=== PATIENT | female | born 1995 | race Caucasian/White ===

== ENCOUNTER 2017-10-15 21:50 | Emergency (ER) | payer OTHER ==
[2017-10-15 22:00] VITALS: BP 110/64; PULSE 82; TEMP 98.4; BMI 23.4
[2017-10-15] MEDS ORDERED: ONDANSETRON *ODT* 4 MG TABLET SL ONE (22:09)
--- NOTE | 2017-10-15 22:40 | PDOC ---
History of Present Illness - General Chief Complaint: Nausea/Vomiting Stated Complaint: VOMITING Time Seen by Provider: 10/15/17 21:57 History Source: Patient Exam Limitations: No Limitations - History of Present Illness Initial Comments: 10/15/17 22:36 This is a 21-year-old female comes in complaining of intermittent vomiting and diarrhea times approximately one week. Patient traveled to [facility] and post returning patient has had 2-3 episodes of vomiting and diarrhea on a daily basis since returned. Patient said vomitus and diarrhea is non-bloody. Patient denies any pain associated with her symptoms. Patient denies any fevers or chills. Patient denies any dizziness, lightheadedness weakness or feeling like she's been a pass out. Patient is otherwise healthy and takes no other medications. PAST MEDICAL HISTORY: no significant history PAST SURGICAL HISTORY: no significant history FAMILY HISTORY: no pertinant history SOCIAL HISTORY: Pt lives with family and is employed. MEDICATIONS: reviewed ALLERGIES: As per nursing notes Review of Systems General: No fevers or chills, no weakness, no weight loss HEENT: No change in vision. No sore throat,. No ear pain CardioVascular: No chest pain or shortness of breath Respiratory:No cough, or wheezing. Gastrointestinal: no nausea, vomitting, diarrhea or constipation, No rectal bleeding Genitourinary: No dysuria, hematuria, or frequency Musculoskeletal: No joint or muscle pain or swelling Neurologic: No headache, vertigo, dizziness or loss of consciousness Psychiatric: nor depression Skin: No rashes or easy bruising Endocrine: no increased thirst or abnormal weight change Allergic: no skin or latex allergy All other systems reviewed and normal Exam: General: Well-nourished well-developed individual, no acute distress HEENT: Throat: Normal, tonsils normal, no erythema or exudate mucous membranes are moist and patient appears well-hydrated Neck: Supple, no meningeal signs, no lymphadenopathy Eyes::Pupils equal reactive and round, extraocular motion intact Chest: Nontender to palpation Cardiac: S1-S2 normal, regular rate and rhythm, no murmurs rubs or gallops Respiratory: Lungs clear to auscultation bilateral Abdomen: Soft, nondistended, normal bowel sounds, nontender to palpation diffusely Extremities: Warm, dry, no cyanosis, clubbing, or edema Skin: No rashes Neuro: Alert and oriented x3, CN II - XII intact, nonfocal exam with normal strength, normal sensation, normal reflexes, normal gait, Psych: Normal mood and affect Assessment and plan: This is a 21-year-old female who complains needing of vomiting and diarrhea intermittently times approximately one week. On my exam patient appears well-hydrated she is not tachycardic and her blood pressure is normal. Patient drinking liquids in the emergency room without any further vomiting. Patient was reassured that this most likely is viral will run its course and if she is not improved in another couple a day she should follow-up with her primary care doctor. Patient was given Zofran here in the emergency room and a prescription for Zofran was sent to her pharmacy. Past History - Past Medical History Allergies/Adverse Reactions: Allergies Allergy/AdvReac Type Severity Reaction Status Date / Time No Known Allergies Allergy Verified 10/15/17 21:52 Home Medications: Ambulatory Orders Ondansetron [Zofran *Odt*] 8 mg SL TID #15 od.tablet 10/15/17 COPD: No Other medical history: DENIES - Suicide/Smoking/Psychosocial Hx Smoking History: Never smoked Have you smoked in the past 12 months: No Information on smoking cessation initiated: No Hx Alcohol Use: No Drug/Substance Use Hx: No Substance Use Type: None *Physical Exam - Vital Signs Last Vital Signs Temp Pulse Resp BP Pulse Ox 98.4 F 82 16 110/64 100 10/15/17 21:57 10/15/17 21:57 10/15/17 21:57 10/15/17 21:57 10/15/17 21:57 ED Treatment Course - Medications Given in the ED: ED Medications Discontinued Medications Generic Name Dose Route Start Last Admin Trade Name Kari PRN Reason Stop Dose Admin Ondansetron HCl 4 mg 10/15/17 22:09 10/15/17 22:12 Zofran Odt - SL 10/15/17 22:10 4 mg ONCE ONE Administration *DC/Admit/Observation/Transfer Diagnosis at time of Disposition: Nausea vomiting and diarrhea - Discharge Dispostion Disposition: HOME Condition at time of disposition: Stable Admit: No - Referrals - Patient Instructions Printed Discharge Instructions: DI for Vomiting -- Adult Additional Instructions: For the nausea take Zofran 1 tablet as often as every 8 hours T to solve underneath your tongue. Clear liquids only for the next 6 hours.. After that if you have had no further vomiting you may have bananas, rice, applesauce, or toast. If no further vomiting for another 8 hours you may have regular food. If you vomit again then nothing to eat or drink for 2 hours. then start back with the clear liquids. Return to the emergency department immediately with ANY new, persistent or worsening symptoms. You MUST call and follow up with your doctor tomorrow if not better. Please make sure your doctor reviews the results of your emergency evaluation. If you continue to have nausea vomiting diarrhea is important that you follow- up with your primary care doctor in 1-2 days. Return to the emergency department immediately with ANY new, persistent or worsening symptoms. Continue any medications as previously prescribed by your physician. . Please make sure your doctor reviews the results of your emergency evaluation. Thank you for coming to the Emergency Department today for your care. It was a pleasure to see you today. Please note that your evaluation is INCOMPLETE until you follow-up with your doctor. - Post Discharge Activity
== END 2017-10-15 22:44 | disposition home or self-care (01) ==
LOC: FER 21:50
DX: R11.2 Nausea with vomiting, unspecified (principal); R19.7 Diarrhea, unspecified
CPT/HCPCS: 99281-25

== ENCOUNTER 2018-04-16 05:25 | Emergency (ER) | payer OTHER ==
[2018-04-16 05:38] VITALS: BP 118/75; PULSE 83; TEMP 98.1; BMI 23.4
--- NOTE | 2018-04-16 06:16 | PDOC ---
History of Present Illness - General Chief Complaint: Laceration Stated Complaint: LEFT THUMB CUT Time Seen by Provider: 04/16/18 05:59 History Source: Patient Exam Limitations: No Limitations - History of Present Illness Initial Comments: 04/16/18 06:13 Anitra is a 22 year old female with no pmhx c/o laceration to the left thumb since [employer]. Patient states was cutting onion when cut with a sharp knife. Tetanus is UTD PMD: Dr. Valladares PMHX: neg PSOCHX: neg etoh, drug, cig ALL: NKDA GENERAL/CONSTITUTIONAL: [No fever or chills. No weakness. No weight change.] HEAD, EYES, EARS, NOSE AND THROAT: [No change in vision. No ear pain or discharge. No sore throat.] RESPIRATORY: [No cough, wheezing, or hemoptysis.] GASTROINTESTINAL: [No nausea, vomiting, diarrhea or constipation. No rectal bleeding.] MUSCULOSKELETAL: [No joint or muscle swelling or pain. No neck or back pain.] SKIN AND BREASTS: [No rash or easy bruising.] NEUROLOGIC: [No headache, vertigo, loss of consciousness, or loss of sensation.] PSYCHIATRIC: [No depression or anxiety.] HEMATOLOGIC/LYMPHATIC: [No anemia, easy bleeding, or history of blood clots.] ALLERGIC/IMMUNOLOGIC: [No hives or skin allergy. No latex allergy.] GENERAL: [The patient is awake, alert, and fully oriented, in mild distress.] HEAD: [Normal with no signs of trauma.] EYES: [Pupils equal, round and reactive to light, extraocular movements intact, sclera anicteric, conjunctiva clear.] ENT: [Ears normal, nares patent, oropharynx clear without exudates. Moist mucous membranes.] LUNGS: [Breath sounds equal, clear to auscultation bilaterally. No wheezes, and no crackles.] HEART: [Regular rate and rhythm, normal S1 and S2 without murmur, rub.] EXTREMITIES: [Normal range of motion, no edema. No clubbing or cyanosis. No cords, erythema, or tenderness.] NEUROLOGICAL: [Cranial nerves II through XII grossly intact. Normal speech, normal gait, 5/5 strength] PSYCH: [Normal mood, normal affect.] SKIN: [Warm, Dry, normal turgor, 2cm laceration flap to the planter aspect thumb ] Past History - Past Medical History Allergies/Adverse Reactions: Allergies Allergy/AdvReac Type Severity Reaction Status Date / Time No Known Allergies Allergy Verified 04/16/18 05:38 Home Medications: Ambulatory Orders Ondansetron [Zofran *Odt*] 8 mg SL TID #15 od.tablet 10/15/17 COPD: No - Suicide/Smoking/Psychosocial Hx Smoking History: Never smoked Have you smoked in the past 12 months: No Information on smoking cessation initiated: No Hx Alcohol Use: No Drug/Substance Use Hx: No Substance Use Type: None *Physical Exam - Vital Signs Last Vital Signs Temp Pulse Resp BP Pulse Ox 98.1 F 83 18 118/75 98 04/16/18 05:30 04/16/18 05:30 04/16/18 05:30 04/16/18 05:30 04/16/18 05:30 Procedures - Laceration/Wound Repair Left Lateral Finger 1st digit Wound Length: to 2.5 cm Wound Explored: clean Wound's Depth, Shape: superficial, flap Irrigated w/ Saline: Yes Betadine Prep: Yes Anesthesia: 1% Lidocaine Suture Size/Type: 5:0 Number of Sutures: 5 Medical Decision Making - Medical Decision Making 04/16/18 06:17 I discussed the physical exam findings, ancillary test results and final diagnoses with the patient. I answered all of the patient's questions. The patient was satisfied with the care received and felt comfortable with the discharge plan and treatment plan. The Patient agrees to follow up with the primary care physician within 24-72 hours. *DC/Admit/Observation/Transfer Diagnosis at time of Disposition: Laceration - Discharge Dispostion Disposition: HOME Condition at time of disposition: Stable - Referrals - Patient Instructions Printed Discharge Instructions: DI for Laceration Repair Additional Instructions: Your Discharge Instructions: You must call primary care physician within 24 hours to arrange follow-up. Return to the Emergency Department with any new, persistent or worsening symptoms, for fever, chills, SOB, dizziness or any other concerning changes that may occur. follow-up with your PMD in 2 days for a wound check and 7-10 days for suture removal. If the wound is hot, with the a discharge, streaking, increased pain, return to the emergency room immediately. - Post Discharge Activity Forms/Work/School Notes: Back to School
== END 2018-04-16 06:39 | disposition home or self-care (01) ==
LOC: JER 05:25
PROC: 0HQGXZZ Repair Left Hand Skin, External Approach (ICD-10-PCS; principal; 2018-04-16)
DX: S61.012A Laceration without foreign body of left thumb without damage to nail, initial encounter (principal); W26.0XXA Contact with knife, initial encounter; Y93.G1 Activity, food preparation and clean up; Y92.030 Kitchen in apartment as the place of occurrence of the external cause; Y99.8 Other external cause status
CPT/HCPCS: 12001; 99281-25

== ENCOUNTER 2018-10-23 16:49 | Emergency (ER) | payer OTHER ==
[2018-10-23 17:10] VITALS: BP 118/74; PULSE 93; TEMP 98; BMI 23.4
--- NOTE | 2018-10-23 17:10 | PDOC ---
Rapid Medical Evaluation Time Seen by Provider: 10/23/18 17:07 Medical Evaluation: Allergies Allergy/AdvReac Type Severity Reaction Status Date / Time No Known Allergies Allergy Verified 04/26/18 16:29 10/23/18 17:07 I have performed a brief in-person evaluation of this patient. The patient presents with a chief complaint of: 1 day of diffuse abdominal pain , nausea, vomiting, diarrhea, no known sick contacts. Denies cold symptoms Pertinent physical exam findings: Afebrile, looks in mild discomfort for pain. I have ordered the following: UCG The patient will proceed to the ED for further evaluation. Discharge Disposition - Diagnosis Nausea vomiting and diarrhea - Referrals - Patient Instructions - Post Discharge Activity
[2018-10-23] MEDS ORDERED: ONDANSETRON 4 MG/2 ML VIAL IVPUSH ONE (17:32)
[2018-10-23] MEDS ORDERED: SODIUM CHLORIDE 1,000 ML IV STA (17:32)
--- NOTE | 2018-10-23 17:32 | PDOC ---
History of Present Illness - General Chief Complaint: Nausea/Vomiting Stated Complaint: VOMITING Time Seen by Provider: 10/23/18 17:07 History Source: Patient - History of Present Illness Timing/Duration: reports: constant Abdominal Pain Onset Location: reports: epigastric Past History - Past Medical History Allergies/Adverse Reactions: Allergies Allergy/AdvReac Type Severity Reaction Status Date / Time No Known Allergies Allergy Verified 04/26/18 16:29 Home Medications: Ambulatory Orders NK [No Known Home Medication] 04/26/18 COPD: No - Immunization History Immunization Up to Date: No - Suicide/Smoking/Psychosocial Hx Smoking History: Never smoked Have you smoked in the past 12 months: No Information on smoking cessation initiated: No Hx Alcohol Use: No Drug/Substance Use Hx: No Substance Use Type: None Review of Systems - Review of Systems Constitutional: Yes: Weakness. No: Chills, Fever ABD/GI: Yes: Diarrhea, Nausea, Vomiting, Abdominal cramping : No: Dysuria *Physical Exam - Vital Signs Last Vital Signs Temp Pulse Resp BP Pulse Ox 98.0 F 93 H 17 118/74 98 10/23/18 17:08 10/23/18 17:08 10/23/18 17:08 10/23/18 17:08 10/23/18 17:08 - Physical Exam Comments: 10/23/18 18:00 Pt actively vomiting in ED General Appearance: Yes: Appropriately Dressed, Moderate Distress HEENT: positive: Normal Voice Neck: positive: Supple Respiratory/Chest: negative: Respiratory Distress Gastrointestinal/Abdominal: positive: Normal Bowel Sounds, Tender (to epigastrium, NT to RUQ ot over mcburneys), Soft. negative: Distended, Guarding Integumentary: positive: Dry, Warm Neurologic: positive: Fully Oriented, Alert, Normal Mood/Affect Moderate Sedation - Procedure Monitoring Vital Signs: Procedure Monitoring Vital Signs Temperature 98.0 F 10/23/18 17:08 Pulse Rate 93 H 10/23/18 17:08 Respiratory Rate 17 10/23/18 17:08 Blood Pressure 118/74 10/23/18 17:08 O2 Sat by Pulse Oximetry (%) 98 10/23/18 17:08 ED Treatment Course - LABORATORY CBC & Chemistry Diagram: 10/23/18 17:40 10/23/18 17:40 Medical Decision Making - Medical Decision Making 10/23/18 17:31 22 yo F, s/p liposuction remotely, here w/ intractable n/v w/ NB, watery diarrhea and epigastric pain since this am. No body aches, f/c. Denies sick contacts, recent travel or unusual food See exam Possibly viral gastroenteritis vs gastritis, unlikely appy as NT over mcburneys , unlikely SBO as having BM and passing flatus Aravind uncomfortable but stable w/ ttp to epigastrium -IVF -zofran -labs including drug screen given strong marijuana odor on pt and boyfriend -reassess 10/23/18 19:08 Pt signed out to JACINTO Thomas pending labs/reassessment *DC/Admit/Observation/Transfer Diagnosis at time of Disposition: Nausea vomiting and diarrhea - Referrals - Patient Instructions - Post Discharge Activity
[2018-10-23] MEDS ORDERED: ONDANSETRON 4 MG/2 ML VIAL ONE (17:54)
[2018-10-23] MEDS ORDERED: ACETAMINOPHEN 1000 MG/100 ML VIAL (NON FORMULARY) IVPB ONE (17:57)
[2018-10-23] MEDS ORDERED: ACETAMINOPHEN INJECTION 100 ML IVPB ONE (17:58)
[2018-10-23 18:09] LABS: BASO % 0.4 % (0-2.0); EOS % 0.3 % (0-4.5); HEMATOCRIT 38.3 % (32.4-45.2); HEMOGLOBIN 13.1 GM/dL (10.7-15.3); LYMPH % 17.8 % (8-40); MCHC 34.3 g/dl (32.0-36.0); MEAN CELL VOLUME 90.3 fl (80-96); MEAN PLT VOLUME 8.8 fl (7.5-11.1); MONO % 3.8 % (3.8-10.2); NEUT % 77.7 % (42.8-82.8); PLATELET COUNT 261 K/MM3 (134-434); RBC 4.24 M/mm3 (3.60-5.2); RDW 13.9 % (11.6-15.6); WHITE BLOOD COUNT 7.2 K/mm3 (4.0-10.0)
[2018-10-23 18:30] LABS: ALBUMIN 4.5 g/dl (3.4-5.0); ALK PHOS 69 U/L (45-117); ANION GAP 8 MMOL/L (8-16); BILIRUBIN,TOTAL 0.6 mg/dL (0.2-1); BLOOD UREA NITROGEN 14 mg/dL (7-18); CALCIUM 9.3 mg/dL (8.5-10.1); CHLORIDE 110 mmol/L (98-107); CO2 27 mmol/L (21-32); CREATININE 0.6 mg/dL (0.55-1.3); GLUCOSE,RANDOM 98 mg/dL (74-106); LIPASE 88 U/L (73-393); POTASSIUM 4.2 mmol/L (3.5-5.1); SGOT/AST 26 U/L (15-37); SGPT/ALT 38 U/L (13-61); SODIUM 145 mmol/L (136-145); TOT PROT 7.8 g/dl (6.4-8.2)
[2018-10-23 18:56] LABS: URINE APPEARANCE CLEAR; URINE BILIRUBIN NEGATIVE (<2.0 mg/dL); URINE COLOR LTYELLOW; URINE GLUCOSE (UA) NEGATIVE (NEGATIVE); URINE KETONE NEGATIVE (NEGATIVE); URINE LEUK ESTERASE NEGATIVE (NEGATIVE); URINE NITRITE NEGATIVE (NEGATIVE); URINE PROTEIN NEGATIVE (NEGATIVE); URINE UROBILINOGEN NEGATIVE mg/dL (0.2-1.0)
--- NOTE | 2018-10-23 19:46 | PDOC ---
*Physical Exam - Vital Signs Last Vital Signs Temp Pulse Resp BP Pulse Ox 98.0 F 93 H 17 118/74 98 10/23/18 17:08 10/23/18 17:08 10/23/18 17:08 10/23/18 17:08 10/23/18 17:08 - Physical Exam General Appearance: Yes: Appropriately Dressed ED Treatment Course - LABORATORY CBC & Chemistry Diagram: 10/23/18 17:40 10/23/18 17:40 - ADDITIONAL ORDERS Additional order review: Laboratory Results 10/23/18 10/23/18 10/23/18 18:43 17:40 17:32 Sodium 145 Potassium 4.2 Chloride 110 H Carbon Dioxide 27 Anion Gap 8 BUN 14 Creatinine 0.6 Creat Clearance w eGFR > 60 Random Glucose 98 Calcium 9.3 Total Bilirubin 0.6 AST 26 ALT 38 Alkaline Phosphatase 69 Total Protein 7.8 Albumin 4.5 Lipase 88 Serum , Qual Negative Urine Color Ltyellow Urine Appearance Clear Urine pH 9.0 H Ur Specific [place] 1.024 Urine Protein Negative Urine Glucose (UA) Negative Urine Ketones Negative Urine Blood Negative Urine Nitrite Negative Urine Bilirubin Negative Urine Urobilinogen Negative Ur Leukocyte Esterase Negative 10/23/18 17:40 RBC 4.24 MCV 90.3 MCHC 34.3 RDW 13.9 MPV 8.8 Neutrophils % 77.7 Lymphocytes % 17.8 Monocytes % 3.8 Eosinophils % 0.3 Basophils % 0.4 - Medications Given in the ED: ED Medications Discontinued Medications Generic Name Dose Route Start Last Admin Trade Name Kari PRN Reason Stop Dose Admin Acetaminophen 1,000 mg 10/23/18 17:57 10/23/18 18:02 Ofirmev Injection - IVPB 10/23/18 17:58 1,000 mg ONCE ONE Administration Sodium Chloride 1,000 mls @ 1,000 mls/hr 10/23/18 17:32 10/23/18 18:02 Normal Saline - IV 10/23/18 18:31 1,000 mls/hr ASDIR STA Administration Ondansetron HCl 4 mg 10/23/18 17:32 10/23/18 18:02 Zofran Injection IVPUSH 10/23/18 17:33 4 mg ONCE ONE Administration Medical Decision Making - Medical Decision Making U tox positive for opiates and THC. 10/23/18 20:20 currently PO challenging 10/23/18 21:31 patient has tolerated by mouth water in the ED. Will give some Maalox and Zantac. as some epigastric discomfort patient is well appearing. Will DC to continue by mouth hydration at home 10/23/18 21:53 patient now feels better will d/c home *DC/Admit/Observation/Transfer Diagnosis at time of Disposition: Nausea vomiting and diarrhea - Discharge Dispostion Disposition: HOME - Prescriptions Prescriptions: Ondansetron [Ondansetron Odt] 4 mg PO TID PRN #10 tab.rapdis PRN Reason: Nausea And/Or Vomiting Ranitidine [Zantac -] 150 mg PO BID #30 tablet - Referrals - Patient Instructions Printed Discharge Instructions: DI for Vomiting -- Adult Additional Instructions: Drink plenty of fluids. Drink Gatorade tolerated. Follow-up with your doctor as soon as possible. Start a Brat (bananas, rice, apples, toast) diet - Post Discharge Activity Forms/Work/School Notes: Back to School
[2018-10-23 19:54] LABS: COCAINE, UR NEGATIVE ng/ml (CUTOFF=300); METHADONE, UR NEGATIVE ng/ml (CUTOFF=300); PHENCYCLIDINE,URINE NEGATIVE ng/ml (CUTOFF=25); URINE AMPHETAMINES NEGATIVE ng/ml (CUTOFF=500); URINE BARBITURATES NEGATIVE ng/ml (CUTOFF=200); URINE BENZODIAZEPINES NEGATIVE ng/ml (CUTOFF=200)
[2018-10-23 20:01] LABS: OPIATES, URI POSITIVE ng/ml (CUTOFF=300)
[2018-10-23] MEDS ORDERED: FAMOTIDINE 20 MG/50 ML IVPB 20 MG/50 ML MG IVPB ONE (20:20)
[2018-10-23] MEDS ORDERED: RANITIDINE HCL 150 MG TABLET (FP) PO ONE (21:27)
[2018-10-23] MEDS ORDERED: RANITIDINE HCL 150 MG TABLET (FP) ONE (21:30)
[2018-10-23] MEDS ORDERED: MAG HYDROX/AL HYDROX/SIMETH 30 ML UNIT-DOSE CUP ONE (21:30)
== END 2018-10-23 22:19 | disposition home or self-care (01) ==
LOC: JER 16:49
PROC: 3E033GC Introduction of Other Therapeutic Substance into Peripheral Vein, Percutaneous Approach (ICD-10-PCS; principal; 2018-10-23)
PROC: 3E033NZ Introduction of Analgesics, Hypnotics, Sedatives into Peripheral Vein, Percutaneous Approach (ICD-10-PCS; 2018-10-23)
DX: R11.2 Nausea with vomiting, unspecified (principal); R19.7 Diarrhea, unspecified
CPT/HCPCS: 36415; 80053; 80307; 81003; 83690; 84703; 85025; 87804; 96374; 96375; 99282-25; J0131; J7030

== ENCOUNTER 2023-10-04 23:13 | Emergency (ER) | payer OTHER ==
[2023-10-04 23:29] VITALS: BP 118/82; PULSE 98; RESP 20; TEMP 98.2; BMI 25.4
[2023-10-04 23:58] LABS: HCG,QUALITATIVE URINE Negative
[2023-10-05 00:13] LABS: EPI CELLS >36 /uL (0-25.1); HYALINE CASTS 4 /uL (0-3.1); PH,URINE 5.5 (5.0-8.0); URINE APPEARANCE CLEAR; URINE BACTERIA 759 /uL (0-1359); URINE BILIRUBIN NEGATIVE (NEGATIVE); URINE COLOR YELLOW; URINE GLUCOSE (UA) NEGATIVE (NEGATIVE); URINE KETONE 1+ (NEGATIVE); URINE LEUK ESTERASE TRACE (NEGATIVE); URINE NITRITE NEGATIVE (NEGATIVE); URINE PROTEIN TRACE (NEGATIVE); URINE RBC 15 /uL (0-23.9); URINE UROBILINOGEN 0.2 mg/dL (0.2-1.0); URINE WBC 71 /uL (0-25.8)
[2023-10-05] MEDS ORDERED: ACETAMINOPHEN 500 MG TABLET (FP) PO ONE (00:52)
[2023-10-05] MEDS ORDERED: ACETAMINOPHEN 325 MG TABLET (FP) ONE (00:54)
== END 2023-10-05 02:50 | disposition home or self-care (01) ==
LOC: JER 23:13
DX: M54.9 Dorsalgia, unspecified (principal); R10.9 Unspecified abdominal pain; N39.0 Urinary tract infection, site not specified
CPT/HCPCS: 74176-TC; 81003; 84703; 87086; 99284-25